=== PATIENT | male | born 1965 | race Caucasian/White ===

== ENCOUNTER → 2018-04-14 16:38 | Outpatient (REF) | payer BC, SELFPAY ==
--- NOTE | 2018-04-14 16:00 | SKI_PTH ---
PATIENT: Andrea Betancur LOC: [facility] U#:[id number] AGE/SX: 60/M ROOM: RE04/14/[address]: Melania Jean-Baptiste : 1965 BED: DIS: SPEC #: [id number] RECD: 04/15/18 12:42 STATUS: MARJAN [place] #: [id number] ENA: 04/14/18 16:[address]: Melania Jean-Baptiste DEPT: Surgical Specimen RECD BY: Cassidy Gaona ENTERED: 04/15/18 12:43 SP TYPE: SKI OTHR DR: Sherron Clay Tissues: 1 - SKIN BIOPSY(SHAVE/PUNCH) Procedures: SKIN LEVEL 4 Comments: [id number]
== END ==
LOC: NCHCN 16:38
PROVIDERS: Visit Provider Family Medicine
DX: L82.1 Other seborrheic keratosis (principal)
CPT/HCPCS: 88305

== ENCOUNTER 2018-04-30 15:00 | Outpatient (RCR) | payer BC, SELFPAY ==
--- NOTE | 2018-04-08 15:49 | PTTR_ITS ---
DATE: 04/08/18 SUBJECTIVE: Pt reports having significantly increased symptoms in L ankle, R knee, as well as new pain in R ankle. Attributes increased discomfort to the change in the weather. Reports he did get minimal relief after last session, but that the relief did not last long. OBJECTIVE: Issued 's note from Dani Luis, PT. Ultrasound - (x 8 mins) - [id number]: Pt in prone, 100% duty cycle, 3.3 MHz, 1.0 W/ CM2 to left lateral and posterior Achilles tendon as well as bony formation. Manual therapy: ([id number]). STM to gastroc/soleus. TPR, muscle stripping to lateral gastroc. CFF to all aspects of Achilles tendon and bony formation. X HEP review: Instructed pt on eccentric strengthening with theraband of gastroc/soleus complex. Pt verbalizes understanding. Receives theraband for home use. Pt completed Wellness program for knee rehab under resident athletic trainer supervision. Direct treatment time: 30 minutes Total treatment time: 60 minutes
--- NOTE | 2018-04-12 15:00 | PTTR_ITS ---
DATE: 04/12/18 SUBJECTIVE: Matt states he was feeling better up until last week when the weather changed and he developed an increase in discomfort in his Achilles area. It settled down some, but it is now only 30% better rather than 50%. He takes Ibuprofen periodically sometimes up to 600mg per day and this does help. OBJECTIVE: His primary care approved Ibuprofen, but never discussed dosage. I discuss some of the parameters with him, and he is going to try and increase the dosage to 2-3 tablets with meals and at bed time, or 1600mg per day. He can send an e-mail to his PCP, or talk to his pharmacist for approval. He sees Dr. Thompson tomorrow. I gave him a note last week to hand deliver. He is ambulating with some mild antalgia on the L, particularly from mid stance to push off. His talocrural motion is non-irritable. Subtalar motion is hypomobile with supination. I show him a stretch to do in standing position. He has tenderness to palpation throughout the L Achilles approximately 2-4cm from the tendocalcaneal attachment. He is minimally tender over the tendocalcaneal attachment today. Manual therapy: ([id number]). I aggressively mobilize this area manually and it desensitizes nicely. I have him walk afterwards and his gait improves with decreased pain. Therapeutic procedures ([id number]). I also introduce some eccentric strengthening exercises on a stool, where he is doing this bilaterally, unilaterally causes too much discomfort yet, will add this also to his HEP. His knee movements are non-irritable, he is hypomobile on the R with flexion of 135 degrees and extension is at -10 degrees bilaterally. He is non-tender throughout the joint line. He also has some increased tone throughout the L hip flexor and I release this with a Johnnie, counterstrain technique and show him how he can do this at home. He tight ITB bilaterally, so he is going to start stretching these also. Direct treatment time: 30 mins Total treatment time: 30 mins A: Doing better last week, but regressed for a couple days. He is going to try bumping up his anti-inflammatories now that it has been approved by his PCP. I will see how he responds to today's manual mobilization, along with adding some eccentric strengthening exercises, ITB stretching, and also stretching subtalar joint into supination. See what Dr. Thompson saids tomorrow. Has a follow up with me later in the week. DLW/dl
--- NOTE | 2018-04-19 15:00 | PTTR_ITS ---
DATE: 04/19/18 SUBJECTIVE: Matt states that he received a few hours of relief with his last session. Saw Dr. Thompson the other day and he recommended that he continue with his rehab. He issued him a 1/2 heel lift for his L shoe to unweight the tendocalcaneal attachment and the Achilles. OBJECTIVE: Manual therapy: ([id number]). Session consisted of mobilizing his L ankle with manual traction, PA glides to the talocrural joint and medial, lateral glides to the subtalar joint along with stretching into supination, pronation. I then have him in prone and clear out the Achilles which is tender, but moreso over the exostosis of the tendocalcaneal attachment and this desensitizes nicely. I try an ankle stabilizer, but he does not notice any difference with it or without. Continues to have R knee pain. He had an arthroscopic meniscectomy with Dr. Savage years ago. I recommend that he get a follow up appt with him. Direct treatment time: 30 mins Total treatment time: 60 mins with 30 min of a wellness program DLW/dl
--- NOTE | 2018-04-22 13:33 | PTTR_ITS ---
DATE: 04/22/18 SUBJECTIVE: Matt states that he gets pain relief immediately after PT for the afternoon and his symptoms tend to come back the next day especially after walking or prolonged sitting. OBJECTIVE: Manual therapy: ([id number]). I begin with mobilizing the talo crural sub talar joints of the (L) foot and flushing the (L) calf as well as deep tissue massage through the achilles tendon which is more tender with the tendo calcaneal attachment today. This includes the Hagmans deformity. Once I clear this out I apply Kinesio Tape to the entire mechanism and he leaves the clinic with minimal symptoms. He will keep the tape on for the next couple days as tolerated and if it becomes uncomfortable to move it. When showering pat dry and we discuss dry needling again and he was not interested in pursuing this and he has a follow up early next week. Direct treatment time: 30 minutes Total treatment time: 30 minutes
--- NOTE | 2018-04-30 15:00 | PTTR_ITS ---
DATE: 04/30/18 SUBJECTIVE: Matt states that his Achilles feels better a few hours after treatment, then his symptoms return. He has occasional sharper twinge that last for short periods of time. Also has occasional discomfort throughout the medial aspect of the R knee. OBJECTIVE: Had an appt with local orthopedist, but then he canc it because he wanted to be seen at [facility], but he needs to have a referral from his primary care. He is going to contact them. He states that he forgot about performing his eccentric strengthening exercises of the Achilles, so we review this. Also upgraded his program to include some stretching exercises into supination, is hypomobile on the L compared to the R. He has tenderness to palpation throughout the L Achilles, moreso than the tendocalcaneal attachment and then I flush out the calf and then localize to the Achilles. 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 I then unload his R knee with strong manual traction from 90-0 degrees, have him walk afterwards and he is not having any discomfort. I then mobilize his L talocrural, subtalar joints including PA glides to the talocrural, then medial lateral glides to the subtalar joint. He is hypomobile with subtalar supination. Manual therapy: ([id number]). Direct treatment time: 30 mins Total treatment time: 30 mins A: Not much change in her symptoms compared to a few weeks ago. He has been on his own for the last 10 days and forgot about his eccentric strengthening, so we review this and he is also tight with his ankle musculature, particularly over the subtalar joint, so I will have him stretch this at home too. I am going to put him on hold for a few weeks and see how he does with his HEP. He may or may not have an appt with this orthopedist by then. P: Have Matt try to comply with his HEP. See him in 2-3 weeks unless he flares up, then he will contact me. IRINA/cornelia
== END 2018-05-07 23:59 | disposition home or self-care (01) ==
LOC: PT 15:00
PROVIDERS: Referring Provider Podiatrist; Visit Provider Podiatrist
DX: M72.2 Plantar fascial fibromatosis (principal); M76.62 Achilles tendinitis, left leg; M25.561 Pain in right knee; M17.11 Unilateral primary osteoarthritis, right knee
CPT/HCPCS: 97035; 97110; 97140

== ENCOUNTER 2018-09-03 16:27 | Outpatient (REF) | payer BC, SELFPAY ==
[2018-09-03 20:48] LABS: HCT 41.1 % (40.0-50.0); HGB 13.3 g/dL (13.5-17.5); Mean Corp. HGB Concentration 32.4 g/dL (32.0-36.0); Mean Corpuscular Hemoglobin 25.7 pg (27.0-33.0); Mean Corpuscular Volume 79.3 fL (80-95); Mean Platelet Volume 10.5 fL (8.0-11.0); Platelet Count 264 x1000/uL (130-400); RBC 5.18 m/cumm (4.50-6.00); RBC Distribution Width 15.3 % (11.8-14.1); White Blood Cell Count 6.41 k/cumm (4.4-10.8)
[2018-09-03 20:54] LABS: C-Reactive Protein 0.38 mg/dL (0.0-0.3); Uric Acid 5.7 mg/dL (3.5-7.2)
[2018-09-03 22:09] LABS: ESR 7 MM/HR (1-20)
[2018-09-06 09:03] LABS: Cyclic Citrullinated Peptide <2.5 U/mL (<5.0)
[2018-09-06 11:03] LABS: Hepatitis C Ab w Rflx HCV PCR Negative (NEGAT)
== END 2018-09-03 16:47 ==
LOC: NCHCN 16:27
PROVIDERS: PCP Internal Medicine; Visit Provider Internal Medicine
DX: M77.9 Enthesopathy, unspecified; Z11.59 Encounter for screening for other viral diseases; D12.9 Benign neoplasm of anus and anal canal
CPT/HCPCS: 85027; 85652; 86200; 86803; 84550; 86140

== ENCOUNTER 2018-10-05 10:46 | Outpatient (REF) | payer BC, SELFPAY ==
[2018-10-06 11:35] LABS: Anion Gap 10.4 mmol/L (3-11); BUN 19 mg/dL (7-18); CO2 25.6 mmol/L (21.0-32.0); CREATININE 0.73 mg/dL (0.70-1.30); Calcium 9.2 mg/dL (8.5-10.1); Chloride 105 mmol/L (98-107); Glucose 82 mg/dL (70-100); Magnesium 1.7 mg/dL (1.8-2.4); Potassium 3.8 mmol/L (3.5-5.1); Sodium 141 mmol/L (136-145)
== END 2018-10-05 11:06 ==
LOC: NCHCN 10:46
PROVIDERS: PCP Internal Medicine; Visit Provider Internal Medicine
DX: I47.1 Supraventricular tachycardia (principal); Z00.00 Encounter for general adult medical examination without abnormal findings; E66.9 Obesity, unspecified
CPT/HCPCS: 80048; 83735; 84443

== ENCOUNTER 2019-04-19 17:16 | Outpatient (REF) | payer BC, SELFPAY | END 2019-04-19 17:36 | LOC: NCHCN 17:16 | PROVIDERS: PCP Internal Medicine; Visit Provider Internal Medicine | DX: E83.42 Hypomagnesemia (principal) | CPT/HCPCS: 83735 ==

== ENCOUNTER 2020-04-17 11:26 | Emergency (ER) | payer BC, SELFPAY ==
[2020-04-17] VITALS (25 sets, daily range): BP systolic 112–151; BP diastolic 61–78; PULSE 50–80; RESP 0–24; TEMP 36.5; O2SAT 97–100
--- NOTE | 2020-04-17 11:30 | RT.EKG_ITS ---
APPROVED REPORT Exam: Resting ECG Patient Location: E HR:55 bpm ECG Measurements Heart Rate 55 AXIS MA 164 P 23 QRSd 101 QRS -19 QT 416 T 14 QTc 400 Conclusion Sinus. No acute change from previous.
--- NOTE | 2020-04-17 11:35 | ED.GENADUL_ITS ---
Discharge Plan Disposition Patient Disposition: HOME Condition: Improving Discharge Details Chief Complaint: Dizzy/Sync Clinical Impression: Episode of dizziness, Vertigo Primary Care Provider: Enrique Arango ED Provider: Holly Banks Home Meds and New Rx's Prescriptions: New meclizine 12.5 mg tablet 12.5 mg PO TID PRN (Reason: dizziness) Qty: 10 RF: 0 Continued valacyclovir [Valtrex] 500 mg Tablet 500 mg PO BID PRNRF: 0 ibuprofen 600 mg Tablet 600 mg PO TID PRNRF: 0 fluticasone propionate [Flonase Allergy Relief] 50 mcg/actuation [place],Suspension 2 spray INTRANASAL DAILY RF: 0 clotrimazole 1 % Cream 1 applic TOPICAL BID PRNRF: 0 Discharge Instructions Instructions: Vertigo (ED), Dizziness (ED) Additional Instructions: Drink plenty of fluids and get plenty of rest. Take the meclizine if you develop any further episodes of dizziness. Call your primary care doctor's office tomorrow to schedule a follow-up appointment for reevaluation and for referral for outpatient environmental monitoring technician if symptoms persist or worsen. Return immediately to the emergency department if you develop any worsening or new concerning symptoms. Discharge Data Discharge Date/Time-TO BE ENTERED AT DEPARTURE: 04/17/20 15:09 Discharge Physician: Holly Banks Medical Decision Making 1140 -- 55-year-old male with a history of palpitations presents for an episode of dizziness that occurred while standing at work today. Describes a room moving and caving in sensation. No other associated symptoms. No acute complaints at this time and feels fine. Vitals within normal limits on arrival. EKG notes a rate of 55, sinus, no acute ST ischemic findings. Patient has no acute complaints on arrival. He has no focal deficits on exam. Suspect most likely vertigo. Also consider central process, dehydration, ACS, arrhythmia, electrolyte abnormality. Will obtain labs, urinalysis, CT head and chest x-ray and give fluids and reassess. 1400 -- Labs and imaging reviewed and unremarkable. Orthostats obtained and negative. Patient was able to ambulate, eat food and denied any return of symptoms. He fe els good to go home. Advised to follow-up with his primary care doctor for reevaluation and for referral for outpatient environmental monitoring technician or any other additional testing if indicated. Usual and customary return precautions given prior to discharge. Medical Records Medical records reviewed: Yes I reviewed the patient's medical records. Imaging Data Radiologic Study: Radiologist's impression: CT HEAD WO CLINICAL HISTORY: dizziness, spinning, r/o acute cva/mass. TECHNIQUE: Imaging Protocol: Axial computed tomography images with coronal and sagittal reformatted images were created and reviewed COMPARISON: No exams were available for comparison FINDINGS: Ventricles and Extra axial spaces: Normal in size and morphology for the patient's age. Hemorrhage: None. Cerebral parenchyma: Normal Midline shift: None. Brainstem/Cerebellum: Normal. Calvarium: Normal. Visualized Paranasal sinuses/Mastoids: Opacification of a few ethmoid air cells otherwise clear paranasal sinuses and mastoid air cells. Soft Tissues: Unremarkable. IMPRESSION: No acute intracranial process. XR CHEST 2V PA LATERAL CLINICAL HISTORY: dizziness, r/o acute disease TECHNIQUE: 2D digital imaging was performed. COMPARISON: No exams were available for comparison FINDINGS: MEDIASTINUM: Normal. HEART: Normal. PULMONARY VASCULATURE: Normal. LUNGS: Clear. PLEURAL SPACE: No pleural effusion or pneumothorax. BONE:Within normal limits for the patient's age. OTHER FINDINGS:Normal. IMPRESSION: No acute pulmonary findings. Lab Data Lab results reviewed: Yes I reviewed the patient's lab results. Labs: Laboratory Tests Range/Units 04/17/20 04/17/20 04/17/20 11:40 11:40 11:40 WBC (4.4-10.8) 10^3/uL 5.84 RBC (4.36-5.78) 10^6/uL 5.31 Hgb (13.5-17.5) g/dL 13.5 Hct (40.0-50.0) % 42.4 MCV (80-95) fL 79.8 L MCH (27.0-33.0) pg 25.4 L MCHC (32.0-36.0) % 31.8 L RDW (11.8-14.1) % 15.2 H Plt Count (130-400) 10^3/uL 250 MPV (8.0-11.0) fL 9.9 Immature Gran % 0.2 Neutrophils % 50.2 Lymphocytes % 37.0 Monocytes % 8.0 Eosinophils % 3.9 Basophils % 0.7 Absolute Neutrophils (1.2-6.7) 10^3/uL 2.93 Absolute Lymphocytes (1.2-3.4) 10^3/uL 2.16 Absolute Monocytes (0.1-0.8) 10^3/uL 0.47 Absolute Eosinophils (0.0-0.7) 10^3/uL 0.23 Absolute Basophils (0.0-0.2) 10^3/uL 0.04 PT (9.3-11.0) sec 9.6 INR (0.9-1.1) 1.0 APTT (21.0-31.4) sec 25.3 Sodium (136-145) mmol/L 137 Potassium (3.5-5.1) mmol/L 4.2 Chloride (98-107) mmol/L 103 Carbon Dioxide (21.0-32.0) mmol/L 24.6 Anion Gap (3-11) mmol/L 9.4 BUN (7-18) mg/dL 15 Creatinine (0.70-1.30) mg/dL 0.80 Estimated GFR/1.73 m2 (mL/min/1.73m2) >= 60.00 Glucose (74-106) mg/dL 87 Calcium (8.5-10.1) mg/dL 8.7 Magnesium (1.8-2.4) mg/dL 1.9 Total Bilirubin (0.2-1.0) mg/dL 0.4 AST (15-37) U/L 22 ALT (16-63) U/L 24 Alkaline Phosphatase (46-116) U/L 88 Troponin I (<0.06) ng/mL < 0.05 Total Protein (6.4-8.2) g/dL 7.3 Albumin (3.4-5.0) g/dL 3.7 Urine Color (Yellow) Urine Clarity (Clear) Urine pH (5-8) Ur Specific [place] (1.005-1.025) Urine Protein (Negative) mg/dL Urine Ketones (Negative) mg/dL Urine Blood (Negative) Urine Nitrite (Negative) Urine Bilirubin (Negative) Urine Urobilinogen (Up TO 0.2) EU/dL Ur Leukocyte Esterase (Negative) Urine RBC (0-2) HPF Urine WBC (0-5) HPF Ur Epithelial Cells (Negative) HPF Urine Crystals (Negative) HPF Urine Bacteria (Negative) HPF Urine Casts (Negative) LPF Urine Mucus (Negative) Ur Culture Indicated? Urine Glucose (Negative) mg/dL Range/Units 04/17/20 12:00 WBC (4.4-10.8) 10^3/uL RBC (4.36-5.78) 10^6/uL Hgb (13.5-17.5) g/dL Hct (40.0-50.0) % MCV (80-95) fL MCH (27.0-33.0) pg MCHC (32.0-36.0) % RDW (11.8-14.1) % Plt Count (130-400) 10^3/uL MPV (8.0-11.0) fL Immature Gran % Neutrophils % Lymphocytes % Monocytes % Eosinophils % Basophils % Absolute Neutrophils (1.2-6.7) 10^3/uL Absolute Lymphocytes (1.2-3.4) 10^3/uL Absolute Monocytes (0.1-0.8) 10^3/uL Absolute Eosinophils (0.0-0.7) 10^3/uL Absolute Basophils (0.0-0.2) 10^3/uL PT (9.3-11.0) sec INR (0.9-1.1) APTT (21.0-31.4) sec Sodium (136-145) mmol/L Potassium (3.5-5.1) mmol/L Chloride (98-107) mmol/L Carbon Dioxide (21.0-32.0) mmol/L Anion Gap (3-11) mmol/L BUN (7-18) mg/dL Creatinine (0.70-1.30) mg/dL Estimated GFR/1.73 m2 (mL/min/1.73m2) Glucose (74-106) mg/dL Calcium (8.5-10.1) mg/dL Magnesium (1.8-2.4) mg/dL Total Bilirubin (0.2-1.0) mg/dL AST (15-37) U/L ALT (16-63) U/L Alkaline Phosphatase (46-116) U/L Troponin I (<0.06) ng/mL Total Protein (6.4-8.2) g/dL Albumin (3.4-5.0) g/dL Urine Color (Yellow) Yellow Urine Clarity (Clear) Clear Urine pH (5-8) 5.5 Ur Specific [place] (1.005-1.025) >= 1.030 H Urine Protein (Negative) mg/dL Negative Urine Ketones (Negative) mg/dL Negative Urine Blood (Negative) Trace-intact H Urine Nitrite (Negative) Negative Urine Bilirubin (Negative) Negative Urine Urobilinogen (Up TO 0.2) EU/dL 0.2 Ur Leukocyte Esterase (Negative) Negative Urine RBC (0-2) HPF 0-2 Urine WBC (0-5) HPF 0-2 Ur Epithelial Cells (Negative) HPF Rare Urine Crystals (Negative) HPF Negative Urine Bacteria (Negative) HPF Negative Urine Casts (Negative) LPF Negative Urine Mucus (Negative) Negative Ur Culture Indicated? No Urine Glucose (Negative) mg/dL Negative ECG Data Attestation: I personally reviewed and interpreted this ECG (s) as follows: Interpretation: Rate of 55, sinus, no acute ST elevation or depression. No acute change from previous EKG. MI 164. QRS 101. QTc 400. HPI General Mode of arrival: ambulatory . Date/Time Provider Initiated Documentation: 04/17/20 11:28 . Limitations to Documentation: no limitations . Information obtained by: patient . HPI Narrative: Patient is a 55-year-old male with a history of kidney stones and palpitations who presents after an episode of dizziness this morning at work. Patient states approximately less than 2 hours ago he was standing at work looking down at his phone when he felt the floor and the machine in front of him seem to be falling backward and caving in. He states he felt that the room was moving around and he was spinning. He states he almost fell but did not and denies any injury. He states it resolved as quickly as it came on and he denies any acute complaints at this time. He denies any symptoms of headache, chest pain, shortness of breath, abdominal pain or palpitations during this episode. He states he has been eating and drinking normally. He denies any recent travel, recent surgery, recent known sick contacts, change in medications or recent illness. Related Data Home Medications Medication Instructions Recorded Confirmed clotrimazole 1 applic TOPICAL BID PRN 04/17/20 04/17/20 fluticasone propionate [Flonase 2 spray INTRANASAL DAILY 04/17/20 04/17/20 Allergy Relief] ibuprofen 600 mg PO TID PRN 04/17/20 04/17/20 meclizine 12.5 mg PO TID PRN #10 tab 04/17/20 valacyclovir [Valtrex] 500 mg PO BID PRN 04/17/20 04/17/20 Previous Rx's Medication Instructions Recorded meclizine 12.5 mg PO TID PRN #10 tab 04/17/20 Allergies Allergy/AdvReac Type Severity Reaction Status Date / Time No Known Allergies Allergy Unverified 07/17/16 12:21 Review of Systems All systems reviewed & are unremarkable except as noted in HPI and below Constitutional Constitutional: Reports as per HPI, Denies chills and Denies fever(s) Eyes Eyes: Denies blurry vision ENT Ears, Nose, Mouth, and Throat: Reports dizziness, Denies sore throat and Denies throat swelling Cardiovascular Cardiovascular: Denies chest pain and Denies dyspnea Respiratory Respiratory: Denies cough and Denies dyspnea Gastrointestinal Gastrointestinal: Denies abdominal pain, Denies diarrhea and Denies vomiting Genitourinary Genitourinary: Denies hematuria and Denies dysuria Musculoskeletal Musculoskeletal: Denies back pain and Denies numbness Integumentary/Breasts Skin/Breast: Denies lesions and Denies rash Neurologic Neurologic: Reports dizziness, Denies localized weakness and Denies numbness Allergic/Immunologic Allergic/Immunologic: Denies throat swelling [facility] Medical History (Updated 04/17/20 @ 14:39 by Holly Banks DO) Kidney stones (Chronic) Palpitations (Acute) Surgical History (Updated 04/17/20 @ 14:44 by Holly Banks DO) History of intestinal surgery (Acute) History of knee surgery (Acute) Hx of lithotripsy (Acute) Social History Smoking/Tobacco Use Status: Never Alcohol Intake: never Substance use type: does not use Do you feel safe at home: Yes Do you feel safe in your relationship?: Yes Exam Const General: cooperative and no acute distress Orientation: alert, awake and oriented x3 HENMT Head: normal to inspection Ears: hearing grossly normal bilaterally, external ears normal and TM's normal bilaterally General nose exam: external nose normal Face and sinus: normal facial exam Mouth: oral mucosae normal Teeth and gingiva: dentition normal Throat: posterior oropharynx normal Eyes General: appearance normal, both eyes and all related structures Eyelids: eyelids normal Pupils: PERRL EOM: EOM intact bilaterally Neck Neck: normal visual inspection Lymphatic: no lymphadenopathy noted Chest Chest: normal inspection of the chest Resp Effort & Inspection: normal respiratory effort and able to speak in complete sentences Auscultation: clear to auscultation bilaterally Cardio Rate: regular rate Rhythm: regular rhythm GI Inspection: normal to inspection Palpation: soft, not firm, no guarding, no hepatosplenomegaly, no masses and nontender Auscultation: normal bowel sounds Back/Spine/Pelvis Back: no CVA tenderness Skin General skin exam: no rashes or lesions noted Neuro General: patient alert and patient awake Cranial Nerves: CN's II-XI intact bilaterally Cognition: normal cognition Speech: speech normal Gait: normal gait Motor: muscle tone normal throughout and strength 5/5 throughout Sensory Exam: no sensory deficits noted Extrem General: normal to inspection, full ROM and capillary refill normal Psych Appearance: grossly normal Mental Status: mental status grossly normal Speech and Movement: speech and movement normal Affect: normal affect Thought Process: normal
--- NOTE | 2020-04-17 11:45 | DI.RAD_ITS ---
EXAM: XR CHEST 2V PA LATERAL CLINICAL HISTORY: dizziness, r/o acute disease TECHNIQUE: 2D digital imaging was performed. COMPARISON: No exams were available for comparison FINDINGS: MEDIASTINUM: Normal. HEART: Normal. PULMONARY VASCULATURE: Normal. LUNGS: Clear. PLEURAL SPACE: No pleural effusion or pneumothorax. BONE:Within normal limits for the patient's age. OTHER FINDINGS:Normal. IMPRESSION: No acute pulmonary findings. DATA REPOSITORY: RADIATION DOSE DELIVERED:
--- NOTE | 2020-04-17 11:45 | DI.CT_ITS ---
EXAM: CT HEAD WO CLINICAL HISTORY: dizziness, spinning, r/o acute cva/mass. TECHNIQUE: Imaging Protocol: Axial computed tomography images with coronal and sagittal reformatted images were created and reviewed COMPARISON: No exams were available for comparison FINDINGS: Ventricles and Extra axial spaces: Normal in size and morphology for the patient's age. Hemorrhage: None. Cerebral parenchyma: Normal Midline shift: None. Brainstem/Cerebellum: Normal. Calvarium: Normal. Visualized Paranasal sinuses/Mastoids: Opacification of a few ethmoid air cells otherwise clear paran bessy sinuses and mastoid air cells. Soft Tissues: Unremarkable. IMPRESSION: No acute intracranial process. RADIATION DOSE DELIVERED: 898.98mGy.cm Total DLP DATA REPOSITORY: All CT scans at this facility are submitted to the National Radiology Data Registry (NRDR) Dose Index Registry (DIR) with the [employer] ([employer]). RADIATION OPTIMIZATION: All CT scans at this facility use at least one of these dose optimization te chniques: automated exposure control; mA and/or kV adjustment per patient size (includes targeted exa ms where dose is matched to clinical indication); or iterative reconstruction.
[2020-04-17 12:06] LABS: Abs Immature Grans 0.01 10^3/uL (0.0-0.06); Absolute Basophil Count 0.04 10^3/uL (0.0-0.2); Absolute Eosinophil Count 0.23 10^3/uL (0.0-0.7); Absolute Lymphocyte Count 2.16 10^3/uL (1.2-3.4); Absolute Monocyte Count 0.47 10^3/uL (0.1-0.8); Absolute Neutrophil Count 2.93 10^3/uL (1.2-6.7); Basophils % 0.7; Eosinophils % 3.9; HCT 42.4 % (40.0-50.0); HGB 13.5 g/dL (13.5-17.5); Immature Grans % 0.2; MCH 25.4 pg (27.0-33.0); MCHC 31.8 % (32.0-36.0); MCV 79.8 fL (80-95); MPV 9.9 fL (8.0-11.0); Neutrophils % 50.2; Nucleated RBC 0 %; Platelet Count 250 10^3/uL (130-400); RBC 5.31 10^6/uL (4.36-5.78); RDW 15.2 % (11.8-14.1); RDW-SD 43.7 fL; WBC 5.84 10^3/uL (4.4-10.8)
[2020-04-17 12:08] LABS: Bilirubin Negative (Negative); Blood Trace-intact (Negative); Clarity Clear (Clear); Glucose Negative (Negative); Ketones Negative (Negative); Leukocyte Esterase Negative (Negative); Nitrite Negative (Negative); Specific Gravity >= 1.030 (1.005-1.025); Urobilinogen 0.2 EU/dL (Up TO 0.2); pH 5.5 (5-8)
[2020-04-17 12:24] LABS: Bacteria Negative HPF (Negative); C & S Indicated? No; Casts Negative LPF (Negative); Crystals Negative HPF (Negative); Epithelial Cells Rare HPF (Negative); Mucus Negative (Negative); RBC 0-2 HPF (0-2); WBC 0-2 HPF (0-5)
[2020-04-17 12:31] LABS: ALT 24 U/L (16-63); AST 22 U/L (15-37); Albumin 3.7 g/dL (3.4-5.0); Alkaline Phosphatase 88 U/L (46-116); Anion Gap 9.4 mmol/L (3-11); BUN 15 mg/dL (7-18); Bilirubin, Total 0.4 mg/dL (0.2-1.0); CO2 24.6 mmol/L (21.0-32.0); Calcium 8.7 mg/dL (8.5-10.1); Chloride 103 mmol/L (98-107); Glucose 87 mg/dL (74-106); Magnesium 1.9 mg/dL (1.8-2.4); Potassium 4.2 mmol/L (3.5-5.1); Sodium 137 mmol/L (136-145); Total Protein 7.3 g/dL (6.4-8.2); Troponin I < 0.05 ng/mL (<0.06)
[2020-04-17 12:32] LABS: PTT Activated 25.3 sec (21.0-31.4); Prothrombin Time 9.6 sec (9.3-11.0)
[2020-04-17] MEDS: Normal Saline 1,000 ML 1000 ML IV (12:50)
== END 2020-04-17 15:09 | disposition home or self-care (01) ==
PROVIDERS: Emergency Provider Physician Assistant; PCP Internal Medicine
DX: R42 Dizziness and giddiness (principal)
CPT/HCPCS: 36415; 80053; 93005; 96360; 96361; 99285; 70450; 71046; 81003; 81015; 83735; 84484; 85025; 85610; 85730; 93010

== ENCOUNTER 2020-09-24 16:05 | Outpatient (REF) | payer BC, SELFPAY ==
[2020-09-25 13:30] LABS: COVID-19 RT-PCR UVMMC Result Negative (Negative)
== END 2020-09-24 16:25 ==
LOC: NCHCN 16:05
PROVIDERS: PCP Internal Medicine; Visit Provider Nurse Practitioner Family
DX: R05 Cough (principal)
CPT/HCPCS: U0003

== ENCOUNTER 2021-09-02 16:17 | Outpatient (REF) | payer BC, SELFPAY ==
[2021-10-02 09:45] LABS: Fungus Smear No Fungi Seen
== END 2021-09-02 16:18 | disposition home or self-care (01) ==
LOC: NCHCN 16:17
PROVIDERS: PCP Internal Medicine; Visit Provider Family Medicine
DX: B35.1 Tinea unguium (principal)
CPT/HCPCS: 87101; 87102; 87206

== ENCOUNTER 2021-12-16 20:52 | Outpatient (REF) | payer BC, SELFPAY ==
[2021-12-16 20:53] LABS: Abs Immature Grans 0.02 10^3/uL (0.0-0.06); Absolute Basophil Count 0.06 10^3/uL (0.0-0.2); Absolute Eosinophil Count 0.25 10^3/uL (0.0-0.7); Absolute Lymphocyte Count 2.49 10^3/uL (1.2-3.4); Absolute Monocyte Count 0.58 10^3/uL (0.1-0.8); Absolute Neutrophil Count 3.68 10^3/uL (1.2-6.7); Basophils % 0.8; Eosinophils % 3.5; HCT 44.1 % (40.0-50.0); HGB 13.9 g/dL (13.5-17.5); Immature Grans % 0.3; Lymphocytes % 35.2; MCH 25.1 pg (27.0-33.0); MCHC 31.5 % (32.0-36.0); MCV 79.6 fL (80-95); MPV 9.7 fL (8.0-11.0); Monocytes % 8.2; Nucleated RBC 0 %; Platelet Count 249 10^3/uL (130-400); RBC 5.54 10^6/uL (4.36-5.78); RDW 15.5 % (11.8-14.1); RDW-SD 44.5 fL; WBC 7.08 10^3/uL (4.4-10.8)
[2021-12-16 21:26] LABS: ALT 25 U/L (16-63); AST 15 U/L (15-37); Albumin 3.7 g/dL (3.4-5.0); Alkaline Phosphatase 92 U/L (46-116); Anion Gap 8.3 mmol/L (3-11); BUN 16 mg/dL (7-18); Bilirubin, Total 0.4 mg/dL (0.2-1.0); CO2 27.7 mmol/L (21.0-32.0); CREATININE 0.8 mg/dL (0.70-1.30); Calcium 8.6 mg/dL (8.5-10.1); Chloride 103 mmol/L (98-107); Glucose 77 mg/dL (74-106); Potassium 3.8 mmol/L (3.5-5.1); Sodium 139 mmol/L (136-145); TSH (W/Ref FT4) 1.61 uIU/mL (0.36-3.74); Total Protein 7.1 g/dL (6.4-8.2)
== END 2021-12-16 20:53 | disposition home or self-care (01) ==
LOC: NCHCN 20:52
PROVIDERS: PCP Internal Medicine; Visit Provider Family Medicine
DX: R53.83 Other fatigue (principal); R06.09 Other forms of dyspnea
CPT/HCPCS: 80053; 84443; 85025

== ENCOUNTER 2023-04-08 21:19 | Outpatient (REF) | payer BC, SELFPAY | END 2023-04-08 21:20 | disposition home or self-care (01) | LOC: NCHCN 21:19 | PROVIDERS: PCP Internal Medicine; Visit Provider Family Medicine | DX: R19.7 Diarrhea, unspecified (principal) | CPT/HCPCS: 87329; 83630; 87177 ==

== ENCOUNTER 2023-10-09 15:11 | Outpatient (REF) | payer BC, SELFPAY ==
[2023-10-09 14:47] LABS: Bacteria Rare HPF (Negative); C & S Indicated? C&S Done As Ordered; Casts Negative LPF (Negative); Crystals Negative HPF (Negative); Epithelial Cells Few HPF (Negative); Mucus Negative (Negative); RBC 0-2 HPF (0-2)
== END 2023-10-09 15:12 | disposition home or self-care (01) ==
LOC: LBN 15:11
PROVIDERS: PCP Internal Medicine; Visit Provider Physician Assistant Medical
DX: N50.812 Left testicular pain (principal); R82.998 Other abnormal findings in urine
CPT/HCPCS: 81015; 87086

== ENCOUNTER 2023-11-11 14:46 | Outpatient (CLI) | payer BC, SELFPAY ==
[2023-11-11 14:27] LABS: Abs Immature Grans 0.02 10^3/uL (0.0-0.06); Absolute Basophil Count 0.07 10^3/uL (0.0-0.2); Absolute Eosinophil Count 0.19 10^3/uL (0.0-0.7); Absolute Lymphocyte Count 2.26 10^3/uL (1.2-3.4); Absolute Monocyte Count 0.53 10^3/uL (0.1-0.8); Absolute Neutrophil Count 3.68 10^3/uL (1.2-6.7); Eosinophils % 2.8; HCT 39.8 % (40.0-50.0); HGB 12.6 g/dL (13.5-17.5); Immature Grans % 0.3; Lymphocytes % 33.5; MCH 24.2 pg (27.0-33.0); MCHC 31.7 % (32.0-36.0); MCV 77 fL (80-95); MPV 9.2 fL (8.0-11.0); Monocytes % 7.9; Neutrophils % 54.5; Platelet Count 254 10^3/uL (130-400); RDW 16.4 % (11.8-14.1); RDW-SD 45.1 fL; WBC 6.75 10^3/uL (4.4-10.8)
[2023-11-11 14:37] LABS: Anion Gap 9.7 mmol/L (3-11); BUN 15 mg/dL (7-18); CO2 27.3 mmol/L (21.0-32.0); CREATININE 0.8 mg/dL (0.70-1.30); Chloride 103 mmol/L (98-107); Estimated GFR 101.32 (mL/min/1.73m2); Glucose 86 mg/dL (74-106); Potassium 3.7 mmol/L (3.5-5.1); Sodium 140 mmol/L (136-145)
== END 2023-11-11 14:47 | disposition home or self-care (01) ==
LOC: LBO 14:47
PROVIDERS: PCP Internal Medicine; Visit Provider Physician Assistant Medical
DX: R10.32 Left lower quadrant pain (principal)
CPT/HCPCS: 36415; 80048; 85025

== ENCOUNTER 2023-12-01 22:44 | Outpatient (REF) | payer BC, SELFPAY ==
[2023-12-01 20:29] LABS: HCT 39.9 % (40.0-50.0); HGB 12.5 g/dL (13.5-17.5)
[2023-12-01 21:06] LABS: Ferritin 27 ng/mL (26-388); Vitamin B12 293 pg/mL (193-986)
[2023-12-01 21:07] LABS: Folate > 20.0 ng/mL (8.6-20.0)
[2023-12-01 21:19] LABS: Iron 41 ug/dL (65-175); Total Iron Binding Capacity 371 ug/dL (250-450); Transferrin Sat 11 % (20-55)
== END 2023-12-01 22:45 | disposition home or self-care (01) ==
LOC: NCHCN 22:44
PROVIDERS: PCP Internal Medicine; Referring Provider Family Medicine; Visit Provider Family Medicine
DX: D64.9 Anemia, unspecified (principal)
CPT/HCPCS: 82607; 82728; 82746; 83540; 83550; 85014; 85018

== ENCOUNTER 2024-03-24 10:10 | Outpatient (REF) | payer BC, SELFPAY ==
[2024-03-24 17:00] LABS: Anion Gap 8.4 mmol/L (3-11); BUN 14 mg/dL (7-18); CO2 26.6 mmol/L (21.0-32.0); CREATININE 0.8 mg/dL (0.70-1.30); Calcium 8.7 mg/dL (8.5-10.1); Chloride 107 mmol/L (98-107); Estimated GFR 101.32 (mL/min/1.73m2); Glucose 94 mg/dL (74-106); Potassium 4.4 mmol/L (3.5-5.1); Sodium 142 mmol/L (136-145)
[2024-03-25 21:14] LABS: PSA, Screening 0.7 ng/mL (<=4.5)
== END 2024-03-24 10:11 | disposition home or self-care (01) ==
LOC: NCHCN 10:10
PROVIDERS: PCP Nurse Practitioner Family; Visit Provider Nurse Practitioner Family
DX: R10.32 Left lower quadrant pain (principal); Z12.5 Encounter for screening for malignant neoplasm of prostate
CPT/HCPCS: 80048; 84153

== ENCOUNTER 2024-05-02 14:02 | Outpatient (CLI) | payer BC, SELFPAY ==
--- NOTE | 2024-05-02 08:30 | DI.RAD_ITS ---
Exam(s) XR KNEE RT 4V AP,LAT,HIEN,PAT EXAM: XR KNEE RT 4V AP,LAT,HIEN,PAT CLINICAL HISTORY: knee pain. TECHNIQUE: 2D digital imaging was performed. COMPARISON: CR KNEES BILAT AP STANDING LATS from 10/17/2011 FINDINGS: Four views No evidence acute fracture. Small amount of increased joint fluid noted. There is [id number] narrowing of the medial compartment and degenerative subarticular cysts are see n on both sides in the medial compartment both in medial femoral condyle and subjacent medial tibial plateau. Lateral compartment exhibits normal height. Minimal degenerative changes in the patellofem oral compartment. IMPRESSION: Significant narrowing of the medial compartment of the right knee when compared to prior images of 20 12. DATA REPOSITORY: RADIATION DOSE DELIVERED:
--- NOTE | 2024-05-02 09:01 | DI.RAD_ITS ---
Exam(s) XR KNEE LT 4V AP,LAT,HIEN,PAT EXAM: XR KNEE LT 4V AP,LAT,HIEN,PAT CLINICAL HISTORY: knee pain. TECHNIQUE: 2D digital imaging was performed. COMPARISON: CR XR KNEE RT 4V AP,LAT,HIEN,PAT from 05/02/2024 FINDINGS: Four views No evidence of fracture. Small joint effusion noted. There is mild narrowing of the medial compartm ent. No narrowing of the lateral patellofemoral compartments. No osteochondral defects seen on the tunnel view. Some degenerative changes are noted in the tibial spines. IMPRESSION: There is some degenerative narrowing of the medial compartment. This is less than what is evident in the medial compartment of the opposite-right knee. DATA REPOSITORY: RADIATION DOSE DELIVERED:
== END 2024-05-02 14:03 | disposition home or self-care (01) ==
LOC: DIORS 14:02
PROVIDERS: PCP Family Medicine; Visit Provider Physician Assistant
DX: M17.0 Bilateral primary osteoarthritis of knee (principal)
CPT/HCPCS: 73564

== ENCOUNTER 2024-07-19 23:01 | Outpatient (REF) | payer BC, SELFPAY ==
[2024-07-19 21:35] LABS: HCT 43.2 % (40.0-50.0); HGB 13.9 g/dL (13.5-17.5); MCH 25.9 pg (27.0-33.0); MCHC 32.2 % (32.0-36.0); MCV 80 fL (80-95); Platelet Count 262 10^3/uL (130-400); RBC 5.37 10^6/uL (4.36-5.78); RDW 15.4 % (11.8-14.1); RDW-SD 44.5 fL
[2024-07-19 21:59] LABS: ALT 26 U/L (16-63); AST 17 U/L (15-37); Albumin 3.7 g/dL (3.4-5.0); Alkaline Phosphatase 107 U/L (46-116); Anion Gap 8.3 mmol/L (3-11); BUN 15 mg/dL (7-18); Bilirubin, Total 0.25 mg/dL (0.2-1.0); CO2 28.7 mmol/L (21.0-32.0); CREATININE 0.8 mg/dL (0.70-1.30); Calcium 8.9 mg/dL (8.5-10.1); Chloride 106 mmol/L (98-107); Estimated GFR 100.69 (mL/min/1.73m2); Ferritin 38 ng/mL (26-388); Glucose 71 mg/dL (74-106); Sodium 143 mmol/L (136-145)
== END 2024-07-19 23:02 | disposition home or self-care (01) ==
LOC: NCHCN 23:01
PROVIDERS: PCP Family Medicine; Visit Provider Family Medicine
DX: Z00.00 Encounter for general adult medical examination without abnormal findings (principal); D64.9 Anemia, unspecified
CPT/HCPCS: 80053; 85027; 82728

== ENCOUNTER 2025-07-17 16:12 | Outpatient (REF) | payer BC, SELFPAY ==
[2025-07-17 21:08] LABS: HCT 41.9 % (40.0-50.0); HGB 13.6 g/dL (13.5-17.5); MCH 25.7 pg (27.0-33.0); MCHC 32.5 % (32.0-36.0); MCV 79 fL (80-95); MPV 10.0 fL (8.0-11.0); Platelet Count 243 10^3/uL (130-400); RBC 5.29 10^6/uL (4.36-5.78); RDW 16.1 % (11.8-14.1); RDW-SD 46.2 fL; WBC 6.47 10^3/uL (4.4-10.8)
[2025-07-17 21:24] LABS: ALT 15 U/L (16-63); AST 11 U/L (15-37); Albumin 3.6 g/dL (3.4-5.0); Alkaline Phosphatase 89 U/L (46-116); Anion Gap 10.5 mmol/L (3-11); BUN 14 mg/dL (7-18); Bilirubin, Total 0.3 mg/dL (0.2-1.0); CO2 25.5 mmol/L (21.0-32.0); Calcium 8.7 mg/dL (8.5-10.1); Chloride 103 mmol/L (98-107); Cholesterol 187 mg/dL (<200); Glucose 84 mg/dL (74-106); HDL Cholesterol 44 mg/dL (>or=40); Potassium 4.0 mmol/L (3.5-5.1); Sodium 139 mmol/L (136-145); Total Protein 6.8 g/dL (6.4-8.2)
== END 2025-07-17 16:13 | disposition home or self-care (01) ==
LOC: NCHCN 16:12
PROVIDERS: PCP Family Medicine; Visit Provider Family Medicine
DX: Z00.00 Encounter for general adult medical examination without abnormal findings (principal)
CPT/HCPCS: 80053; 80061; 85027